=== PATIENT | female | born 1995 | race Caucasian/White ===

== ENCOUNTER 2021-03-03 18:37 | Emergency (ER) | payer OTHER ==
[2021-03-03 18:44] VITALS: RESP 18
--- NOTE | 2021-03-03 19:11 | XR ---
EXAMINATION TYPE: XR hand complete LT DATE OF EXAM: 03/03/2021 CLINICAL HISTORY: Laceration TECHNIQUE: Frontal, lateral and oblique images of the left hand are obtained. COMPARISON: None. FINDINGS: Soft tissue swelling and irregularity over the dorsal hand. There are a few punctate radio densities in the soft tissues of the dorsal hand. There is no acute fracture/dislocation evident in t he left hand. The joint spaces in the left hand appear within normal limits. IMPRESSION: Soft tissue swelling few punctate radiodensities in the dorsal hand. There is no acute f racture or dislocation in the left hand.
[2021-03-03] MEDS ORDERED: DIPH,PERTUS(ACELL)TETVAC-LF 0.5 ML VIAL IM ONE (19:13)
[2021-03-03] MEDS ORDERED: LIDOCAINE 1% INJ 10MG/ML (20 ML MDV) SQ ONE (19:17)
[2021-03-03] MEDS ORDERED: BACITRACIN OINT 1 EACH PACKET TOPICAL ONE (19:17)
[2021-03-03] MEDS ORDERED: MORPHINE SULFATE 2 MG/ML SYRINGE IVP ONE (20:29)
[2021-03-03] MEDS ORDERED: ONDANSETRON 4 MG/2 ML VIAL IVP STA (20:29)
[2021-03-03] MEDS ORDERED: ACET/COD 300 MG/30 MG STARTER PACK 6 TAB BTL PO STA (21:30)
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
[2021-03-03 21:48] VITALS: BP 121/81; PULSE 76; TEMP 98
== END 2021-03-03 21:47 | disposition home or self-care (01) ==
LOC: EC 18:37 → MERGE 18:37 → EC 21:47
DX: S61.412A Laceration without foreign body of left hand, initial encounter (principal); V47.5XXA Car driver injured in collision with fixed or stationary object in traffic accident, initial encounter; Y92.410 Unspecified street and highway as the place of occurrence of the external cause
CPT/HCPCS: 73130; 90715; 12002; 90471; 96365; 96375 ×2; 99284; J2405; J0690; J2001; J2270

== ENCOUNTER 2021-03-10 11:56 | Day surgery (SDC) | payer OTHER ==
[2021-03-08 15:38] VITALS: BMI 19.4
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
[~2021-03-10 11:56] MED LIST: DEXAMETHASONE SOD PHOSPHATE 4 MG/ML 1 ML VIAL IV ONE; HYDROmorphone 0.5 MG/0.5 ML SYRINGE IVP PRN; LACTATED RINGERS 1,000 ML IV SCH; LIDOCAINE 1% (10MG/ML) FOR IV START INTRADERMA PRN; ONDANSETRON 4 MG/2 ML VIAL IVP ONE; SCOPOLAMINE 1.5MG/72HR PATCH TRANSDERM ONE
[2021-03-10 13:28] LABS: Basophils % (A) 1 %; Eosinophils # (A) 0.1 k/uL (0-0.7); Eosinophils % (A) 1 %; HCT 40.3 % (34.0-46.0); HGB 13.3 gm/dL (11.4-16.0); Lymphocytes # (A) 2.6 k/uL (1.0-4.8); Lymphocytes % (A) 31 %; MCH 30.3 pg (25.0-35.0); MCHC 33.1 g/dL (31.0-37.0); MCV 91.6 fL (80.0-100.0); Mean Platelet Volume 6.7; Monocytes # (A) 0.3 k/uL (0-1.0); Monocytes % (A) 4 %; Neutrophils # (A) 5.1 k/uL (1.3-7.7); Neutrophils % (A) 61 %; Platelet Count 441 k/uL (150-450); RDW 11.4 % (11.5-15.5); WBC 8.4 k/uL (3.8-10.6)
[2021-03-10] MEDS ORDERED: fentaNYL (PF) 50 MCG/ML 2 ML AMP IVP ONE (14:00)
[2021-03-10] MEDS ORDERED: MIDAZOLAM 2 MG/2 ML VIAL IVP ONE (14:00)
[2021-03-10] MEDS ORDERED: PROPOFOL 10 MG/ML 20 ML VIAL IV ONE (14:15)
[2021-03-10] MEDS ORDERED: ROPIVACAINE 5 MG/ML 30 ML VIAL ONE (14:15)
[2021-03-10] MEDS ORDERED: PHENYLEPHRINE-0.9% NACL SYG 1,000 MCG/10 ML SYRINGE ONE (14:15)
[2021-03-10] MEDS ORDERED: MIDAZOLAM 2 MG/2 ML VIAL ONE (14:15)
[2021-03-10] MEDS ORDERED: SODIUM CHLORIDE 0.9% (PF) 10 ML VIAL ONE (14:15)
[2021-03-10] MEDS ORDERED: LIDOCAINE 1% INJ 10MG/ML (20 ML MDV) ONE (14:15)
[2021-03-10] MEDS ORDERED: fentaNYL (PF) 50 MCG/ML 2 ML AMP ONE (14:15)
--- NOTE | 2021-03-10 14:47 | P.ANPRN ---
Procedure Note - Anesthesia - Nerve Block Performed Left Axillary Single Time Out Performed: Yes (1400) Date of Procedure: 03/10/21 Procedure Start Time: 14:01 Procedure Stop Time: 14:08 Specifically requested for management of pain by DrHakan: Hollis Ma Sedation Type: Sedate with meaningful contact maintained Preparation: Sterile Prep Position: Supine Catheter: None Needle Types: Pajunk Needle Gauge: 21 Ultrasound used to visualize needle placement: Yes Ultrasound used to observe medication spread: Yes Injectate: 0.5% Ropivacaine (see comment for volume) (30CC + 10CC nacl pf (10CC ALIQUOTS EACH NERVE)) Blood Aspirated: No Pain Paresthesia on Injection Noted: No Resistance on Injection: Normal Image Stored and Saved: Yes Events: Uneventful and Well Tolerated
[2021-03-10] MEDS ORDERED: LACTATED RINGERS 1,000 ML IV ONE (15:07)
[2021-03-10 15:56] VITALS: TEMP 96.9
[2021-03-10 16:07] VITALS: RESP 16
[2021-03-10 16:55] VITALS: BP 111/77; PULSE 86
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
== END 2021-03-10 17:29 | disposition home or self-care (01) ==
LOC: OR 11:56
PROVIDERS: ATTEND Orthopaedic Surgery Hand Surgery
DX: S61.412A Laceration without foreign body of left hand, initial encounter (principal); S61.217A Laceration without foreign body of left little finger without damage to nail, initial encounter; S61.215A Laceration without foreign body of left ring finger without damage to nail, initial encounter; V47.9XXA Unspecified car occupant injured in collision with fixed or stationary object in traffic accident, initial encounter; Z82.49 Family history of ischemic heart disease and other diseases of the circulatory system
CPT/HCPCS: 13121; 85025; 84703; 87070; 87205; 87075; J2250; J1100; J2405; J0690; J3010; 64415; 76942

== ENCOUNTER 2021-09-08 09:39 | Day surgery (SDC) | payer OTHER ==
[2021-09-03 11:33] VITALS: BMI 20.2
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
[~2021-09-08 09:39] MED LIST changes: -LIDOCAINE 1% (10MG/ML) FOR IV START INTRADERMA PRN; -SCOPOLAMINE 1.5MG/72HR PATCH TRANSDERM ONE
[2021-09-08] MEDS ORDERED: MIDAZOLAM 2 MG/2 ML VIAL IVP ONE ×2 (10:41)
[2021-09-08] MEDS ORDERED: LIDOCAINE 1% (PF) 10 MG/ML (30 ML SDV) SQ ONE (11:26)
[2021-09-08] MEDS ORDERED: BUPIVACAINE (PF) 0.5% 30 ML VIAL SQ ONE (11:27)
[2021-09-08 12:34] VITALS: TEMP 97.5
[2021-09-08 13:37] VITALS: BP 124/80; PULSE 78; RESP 20
--- NOTE | 2021-09-08 21:21 | P.OP ---
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 After extensive therapy and conservative treatment post operatively she developed a left ring finger MCP joint extension contracture and presents today for contracture release. Risks and benefits of surgery were discussed with the patient including bleeding, damage to surrounding tissue, infection, need for further surgery as well as risks of anesthesia including pulmonary embolism and even and the patient wished to proceed with surgical intervention. The patient was seen in the pre-operative area by myself. Consent and H&P were completed and updated. The correct extremity was marked in the pre-operative area by myself and all other questions were answered. Operative Narrative: The patient was brought to the operating room by the department of anesthesia. They remained on the portable stretcher and a rolling hand table was brought to the side of the operative extremity. Pre-operative time out was performed indicating the correct patient, procedure and laterality. All in the room agreed. Pre-operative antibiotics were given prior to skin incision. The patient was then drifted off to sleep by the department of anesthesia. A nonsterile tourniquet was then applied to the operative extremity and the left upper extremity was then prepped and draped in normal sterile fashion. The operative extremity was the exsanguinated with an esmarch bandage and the tourniquet was inflated to 250mmHg. Longitudinal incision was made with 15 blade scalpel centered over the ring finger MCP joint with extension proximally through the zone of previous injury. Tenotomy scissors were the used to dissect through thick and expansive scar tissue and adhesions that had developed from the level of the dorsal hand to the extensor thibodeaux overlying the proximal phalanx and MCP joint capsule. Ethibond sutures were identified and the previously repaired extensor tendon laceration appeared to be intact. Scar tissue and adhesions were released from the repair site from surrounding skin, muscle, and metacarpal bone and the tendon repair site was debulked. After repair site was free from surrounding adhesions only a 5-10 degree improvement in MCP flexion was appreciated. Dissection was carried out further distal towards the MCP joint. The entire extensor thibodeaux and apparatus was completely scarred down with adhesions and scar tissue encasing sagittal bands and the extensor tendon to the MCP dorsal joint capsule. Extensor tendon was mobilized and MCP joint was incised transversely and the dorsal capsule was excised. Passive MCP flexion was then performed and a release was appreciated and the MCP joint was able to achieve 90 degrees of flexion. With extreme fle xion the extensor tendon was found to be unstable and subluxing radially due to scarred sagittal bands and tension of extensor tendon due to subsequent shortening of the tendon that had developed since repair. Rongeur was used to remove the dorsal prominence of the metacarpal head which then allowed smooth and stable tendon excursion from 0 -80 degrees with passive flexion. The wound was then irrigated and closure was performed with 4-0 monocryl suture followed by a running subcuticular stitch and steri strips. 10cc of 0.5% bupivicaine was injected into the area of the wound. Soft dressing consisting of 4x4s, cast padding and kendra wrap was applied. Tourniquet was let down and the hand had immediate perfusion. The patient was then woken by the department of anesthesia and transferred to PACU in stable condition. Ed VINES was present for the case in it's entirety for assistance in major portions of the procedure. Hollis Ma D.O. Orthopedic Hand/Upper Extremity Surgeon
== END 2021-09-08 13:44 | disposition home or self-care (01) ==
LOC: OR 09:39
PROVIDERS: ATTEND Orthopaedic Surgery Hand Surgery
DX: M24.542 Contracture, left hand (principal); Z90.89 Acquired absence of other organs; Z98.890 Other specified postprocedural states; Z79.3 Long term (current) use of hormonal contraceptives
CPT/HCPCS: 26520; 26445; 81025; J2250; J1100; J2405; J0690; J2001

== ENCOUNTER → 2022-11-12 | Outpatient (CLI) | payer BC ==
[2022-11-12 12:14] LABS: HCT 35.7 % (34.0-46.0); MCH 31.3 pg (25.0-35.0); MCHC 33.5 g/dL (31.0-37.0); MCV 93.3 fL (80.0-100.0); Mean Platelet Volume 7.2; Platelet Count 401 k/uL (150-450); RBC 3.83 m/uL (3.80-5.40); RDW 12.5 % (11.5-15.5); WBC 11.2 k/uL (3.8-10.6)
== END | disposition home or self-care (01) ==
LOC: LABWHC1 09:13
PROVIDERS: ATTEND Obstetrics & Gynecology
DX: Z34.02 Encounter for supervision of normal first pregnancy, second trimester (principal); Z3A.00 Weeks of gestation of pregnancy not specified
CPT/HCPCS: 36415; 82950; 85027

== ENCOUNTER 2023-02-09 05:47 | Inpatient (IN) | payer BC ==
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
[2023-02-09] MEDS ORDERED: TRANEXAMIC 1,000 MG/100ML-NACL 1,000 MG in EMPTY BAG 1 BAG IV PRN (06:05)
[2023-02-09] MEDS ORDERED: OXYTOCIN 10 UNIT/ML 1 ML VIAL IM PRN (06:05)
[2023-02-09] MEDS ORDERED: TERBUTALINE 1 MG/ML VIAL SQ PRN (06:05)
[2023-02-09] MEDS ORDERED: METHYLERGONOVINE 0.2 MG/ML 1 ML AMP IM PRN (06:05)
[2023-02-09] MEDS ORDERED: OXYTOCIN 30 UNITS/500 ML NS 30 UNIT in SALINE 1 500ML.BAG IV SCH ×2 (06:05→14:32)
[2023-02-09] MEDS ORDERED: LIDOCAINE 0.5% (PF) 5 MG/ML (50 ML SDV) SQ PRN (06:05)
[2023-02-09] MEDS ORDERED: CARBOPROST TROMETHAMINE 250 MCG/ML 1 ML AMP IM PRN (06:05)
[2023-02-09] MEDS ORDERED: miSOPROStoL 200 MCG TAB PO PRN (06:05)
[2023-02-09 06:21] LABS: Glucose,Whole Blood 84 mg/dL (70-110)
[2023-02-09] MEDS: LACTATED RINGERS 1,000 ML IV SCH ×2 (06:40→11:44)
[2023-02-09 06:53] LABS: Basophils % (A) 0 %; Eosinophils # (A) 0.2 k/uL (0-0.7); Eosinophils % (A) 2 %; HCT 32.5 % (34.0-46.0); HGB 11.2 gm/dL (11.4-16.0); Lymphocytes # (A) 2.7 k/uL (1.0-4.8); Lymphocytes % (A) 22 %; MCH 29.4 pg (25.0-35.0); MCHC 34.4 g/dL (31.0-37.0); MCV 85.5 fL (80.0-100.0); Mean Platelet Volume 7.8; Monocytes # (A) 0.7 k/uL (0-1.0); Monocytes % (A) 5 %; Neutrophils # (A) 8.5 k/uL (1.3-7.7); Neutrophils % (A) 68 %; Platelet Count 431 k/uL (150-450); RDW 13.5 % (11.5-15.5); WBC 12.4 k/uL (3.8-10.6)
[2023-02-09] MEDS ORDERED: SODIUM CHLORIDE 0.9% 250 ML BAG ONE (11:53)
[2023-02-09] MEDS ORDERED: ROPIVACAINE 5 MG/ML 30 ML VIAL ONE (11:53)
[2023-02-09] MEDS ORDERED: fentaNYL (PF) 50 MCG/ML 5 ML AMP ONE (11:53)
[2023-02-09] MEDS ORDERED: BENZOCAINE/MENTHOL SPRAY 1 GM/SPRAY AEROSOL TOPICAL PRN (14:32)
[2023-02-09] MEDS ORDERED: SIMETHICONE 80 MG CHEWABLE PO PRN (14:32)
[2023-02-09] MEDS ORDERED: diphenhydrAMINE 25 MG CAP PO PRN (14:32)
[2023-02-09] MEDS ORDERED: LANOLIN CREAM 5 GM TUBE TOPICAL PRN (14:32)
[2023-02-09] MEDS ORDERED: ZOLPIDEM 5 MG TAB PO PRN (14:32)
[2023-02-09] MEDS ORDERED: HYDROCORTISONE 2.5% RECTAL CREAM 30 GM TUBE RECTAL PRN (14:32)
[2023-02-09] MEDS ORDERED: bisacodyL 10 MG SUPP RECTAL PRN (14:32)
[2023-02-09] MEDS ORDERED: diphenhydrAMINE 50 MG/ML 1 ML VIAL IVP PRN (14:32)
[2023-02-09] MEDS: IBUPROFEN 600 MG TAB PO PRN (17:03)
--- NOTE | 2023-02-09 17:46 | P.PROBDLV ---
Vaginal Delivery Note - . Vaginal Delivery Note: Normal vaginal delivery viable female Apgars 9 and 9 delivery time is 1410 hrs. Please see dictated H&P for intimate details of this patient's admission. In brief summary this is a pleasant 27-year-old 1 para 0 female 39-6/7 weeks gestation admitted to labor and delivery for induction of labor secondary to gestational diabetes. On admission patient is 2 cm dilated has artificial rupture membranes for clear fluid. Labor is induced with Pitocin per protocol. Patient does get an epidural for pain control progresses quickly. Patient pushes the head to the perineum. Patient's perineum is quite constricted and is felt that episiotomy is necessary. I infiltrate the posterior perineum with 1% lidocaine. A midline episiotomy is made at this point with 1 push she delivered is head over the perineum. Mouth and nares are bulb suctioned. There is no evidence of a nuchal cord. With gentle downward traction we easily have delivery the anterior shoulder and posterior shoulder and rest this 's body. This is a vigorous viable female Apgars are 9 and 9 delivery time is 1410 hours. After delivery of the , the is laid on the mother's abdomen. After the cord is done pulsating is doubly clamped and then cut. The placenta is then spontaneously delivered intact. Inspection of perineum shows second-degree midline laceration is repaired with 3-0 Vicryl usual fashion. Excellent reapproximation is noted. All counts are correct 3. There are no complications. Infant and mother are stable delivery room.
[2023-02-09] MEDS: ACETAMINOPHEN TAB 325 MG TAB PO PRN (23:27)
[2023-02-09] MEDS: SENNOSIDES-DOCUSATE SODIUM 1 EACH TAB PO SCH (23:27)
[2023-02-10] MEDS: SENNOSIDES-DOCUSATE SODIUM 1 EACH TAB PO SCH (00:10)
[2023-02-10] MEDS: IBUPROFEN 600 MG TAB PO PRN (02:35)
[2023-02-10] MEDS: ACETAMINOPHEN TAB 325 MG TAB PO PRN (06:20)
--- NOTE | 2023-02-10 06:40 | P.PNOBGVD ---
Subjective - Subjective Patient reports: Reports appetite normal, Reports voiding normally, Reports pain well controlled, Reports ambulating normally : doing well Objective - Latest Vital Signs Latest vital signs: Vital Signs Temp Pulse Resp BP Pulse Ox 02/10/23 03:30 98.6 F 68 12 113/81 99 02/09/23 23:40 98.2 F 68 12 126/84 99 02/09/23 20:30 98.4 F 74 14 120/71 97 02/09/23 16:21 97.1 F L 77 16 122/73 02/09/23 15:51 66 16 119/80 02/09/23 15:21 73 16 129/64 02/09/23 15:06 81 17 127/61 02/09/23 14:51 75 17 130/60 02/09/23 14:36 80 17 125/58 02/09/23 14:21 96.7 F L 83 18 113/65 Intake and Output 02/09/23 02/09/23 02/10/23 14:59 22:59 06:59 Intake Total 1682.133 800 Output Total 75 200 Balance 1607.133 600 Intake: IV 1500 800 Intake, IV Titration 182.133 Amount Oxytocin 30 Units/500 ml 182.133 Ns 30 unit In Saline 1 500ml.bag @ Per Protocol IV .Q0M [facility] Rx#:[id number] Output: Urine 75 Output, Quantitative 200 Blood Loss Other: # Voids 3 1 - Exam Lungs: bilateral: normal Chest: Normal S1, Normal S2 Extremities: Present: normal Abdomen: Present: normal appearance, soft Uterus: Present: normal, firm - Labs Labs: Abnormal Lab Results - Last 24 Hours (Table) 02/09/23 Range/Units 06:35 WBC 12.4 H (3.8-10.6) k/uL Hgb 11.2 L (11.4-16.0) gm/dL Hct 32.5 L (34.0-46.0) % Neutrophils # 8.5 H (1.3-7.7) k/uL Assessment and Plan Assessment: day #1. Patient is resting without complaints and wishes to go home. Vital signs are stable she's afebrile. Uterus is firm nontender and she is having normal lochia. CBC is pending. My impression is normal course. Plan is to continue routine care discharge home later today. (1) 39 weeks gestation of Current Visit: No Status: Acute Code(s): Z3A.39 - 39 WEEKS GESTATION OF SNOMED Code(s): 71064500 (2) Gestational diabetes Current Visit: No Status: Acute Code(s): O24.419 - GESTATIONAL DIABETES MELLITUS IN , UNSP CONTROL SNOMED Code(s): 23469269 (3) Encounter for induction of labor Current Visit: No Status: Acute Code(s): Z34.90 - ENCNTR FOR SUPRVSN OF NORMAL , UNSP, UNSP TRIMESTER SNOMED Code(s): 153615280
--- NOTE | 2023-02-10 06:44 | P.DS ---
Providers Date of admission: 02/09/23 05:47 Expected date of discharge: 02/10/23 Attending physician: Wellington Joy Primary care physician: Stated None - Discharge Diagnosis(es) (1) 39 weeks gestation of Current Visit: No Status: Acute (2) Gestational diabetes Current Visit: No Status: Acute (3) Encounter for induction of labor Current Visit: No Status: Acute Hospital Course: Please see dictated H&P for intimate details of this patient's admission. Brief summary this is a pleasant 26-year-old 2 para 0 female 40-0/7 weeks gestation who is admitted to labor and delivery for induction of labor secondary to gestational diabetes. Patient is admitted has uncomplicated induction of labor was on have a vaginal delivery viable female . Please see dictated delivery note. day #1 patient's doing well wishes to go home. Patient's felt be stable for discharge home follow up with me in 6 weeks. Procedures: Induction of labor and normal vaginal delivery Patient Condition at Discharge: Good Plan - Discharge Summary New Discharge Prescriptions: New Ibuprofen [Motrin] 600 mg PO Q6HR PRN #30 tab PRN Reason: Mild Pain (Scale 1 To 3) No Action Vit No.179/Iron/Folic [ Tablet] 1 tab PO DAILY Discharge Medication List Vit No.179/Iron/Folic [ Tablet] 1 tab PO DAILY 02/09/23 [History] Ibuprofen [Motrin] 600 mg PO Q6HR PRN #30 tab 02/10/23 [Rx] Follow up Appointment(s)/Referral(s): Wellington Joy MD [STAFF PHYSICIAN] - 03/22/23 10:30 am Patient Instructions/Handouts: Vaginal Delivery (DC) Activity/Diet/Wound Care/Special Instructions: No intercourse or anything per vagina for 6 weeks. Please call if any fever, chills, excessive vaginal bleeding, and/or abdominal pain. Discharge Disposition: HOME SELF-CARE
[2023-02-10 08:03] LABS: Basophils # (A) 0.1 k/uL (0-0.2); Basophils % (A) 0 %; Eosinophils # (A) 0.2 k/uL (0-0.7); Eosinophils % (A) 1 %; HCT 32.8 % (34.0-46.0); HGB 10.8 gm/dL (11.4-16.0); Lymphocytes # (A) 3.6 k/uL (1.0-4.8); Lymphocytes % (A) 24 %; MCH 28.7 pg (25.0-35.0); MCV 86.9 fL (80.0-100.0); Mean Platelet Volume 7.7; Monocytes # (A) 0.8 k/uL (0-1.0); Monocytes % (A) 5 %; Neutrophils # (A) 9.7 k/uL (1.3-7.7); Neutrophils % (A) 66 %; Platelet Count 397 k/uL (150-450); RBC 3.78 m/uL (3.80-5.40); RDW 13.8 % (11.5-15.5); WBC 14.8 k/uL (3.8-10.6)
[2023-02-10 08:07] VITALS: TEMP 97.9
[2023-02-10 13:02] VITALS: BP 130/78; PULSE 68; RESP 15
== END 2023-02-10 15:26 | disposition home or self-care (01) | DRG 807 ==
LOC: 4FBP 05:47
PROVIDERS: ADMIT Obstetrics & Gynecology; ATTEND Obstetrics & Gynecology
PROC: 10E0XZZ Delivery of Products of Conception, External Approach (ICD-10-PCS; principal; 2023-02-09)
PROC: 0KQM0ZZ Repair Perineum Muscle, Open Approach (ICD-10-PCS; 2023-02-09)
DX: O24.429 Gestational diabetes mellitus in childbirth, unspecified control (principal); Z37.0 Single live birth; O70.1 Second degree perineal laceration during delivery; Z3A.39 39 weeks gestation of pregnancy
CPT/HCPCS: 83036; 85025; 86850; 86900; 86901; 88307